=== PATIENT | female | born 1995 | race Hispanic/Latino ===

== ENCOUNTER 2024-04-26 17:28 | Emergency (ER) | payer SELFPAY ==
[~2024-04-26] VITALS: Ht 157.5 cm; Wt 120.7 kg
[2024-04-26 17:32] VITALS: PULSE 96; RESP 18; TEMP 98.7
[2024-04-26] MEDS ORDERED: FAMOTIDINE20 MG PO (18:29)
[2024-04-26] MEDS ORDERED: MAALOX MAXIMUM355 ML PO (18:29)
[2024-04-26] MEDS ORDERED: DICYCLOMINE HCL20 MG PO (18:29)
[2024-04-26] MEDS: FAMOTIDINE 20 MG/2 ML VIAL IV ONE (18:45)
[2024-04-26] MEDS: KETOROLAC TROMETHAMINE 30 MG/ML VIAL IV STA (18:45)
[2024-04-26] MEDS: SODIUM CHLORIDE 0.9% 500ML 500 ML IV STA (18:46)
[2024-04-26] MEDS: ONDANSETRON HCL INJ 2MG/ML 2ML 2 MG/ML VIAL IV ONE (18:47)
[2024-04-26 19:19] VITALS: BP 119/65; PULSE 76; RESP 16; TEMP 98.3; O2SAT 98
== END 2024-04-26 19:21 | disposition home or self-care (01) ==
LOC: FSED 17:39
DX: R11.0 Nausea (principal); K52.9 Noninfective gastroenteritis and colitis, unspecified; R10.13 Epigastric pain
CPT/HCPCS: 80048; 80076; 80307; 81025; 85025; 99283; J1885; J2405; J7040